=== PATIENT | male | born 1985 | race Caucasian/White ===

== ENCOUNTER 2022-06-17 10:17 | Emergency (ER) | payer OTHER, BC, SELFPAY ==
[2022-06-17 10:26] VITALS: BP 144/78; PULSE 78; RESP 18; TEMP 36.3; O2SAT 98; BMI 29.2
--- NOTE | 2022-06-17 11:00 | ED_ITS ---
HPI - Extremity Injury (Upper) General Chief Complaint: Extremity Pain/Injury, Upper Stated Complaint: Pain behind left shoulderblade Time Seen by Provider: 06/17/22 10:32 History of Present Illness HPI narrative: Started to feel some discomfort in the area of his left shoulder yesterday morning. 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 Was caring tripod with Mom today equipment through the [place] yesterday primarily with his left hand/arm. Over the course of the day in through the night things have gotten increasingly bad. Pain is progressed to his anterior chest as well. Does not hurt so much to move the neck but any manipulation of the shoulder area it does cause pain. I note him to be high riding his left shoulder. Tried 7 Tylenol over the course of the day yesterday without making a difference. Woke up in the middle night also with a little numbness in his left hand. No personal or family history of cardiovascular disease. Has seen a chiropractor regularly over the years. Related Data Home Medications Medication Instructions Recorded Confirmed No Known Home Medications 06/17/22 06/17/22 Allergies Allergy/AdvReac Type Severity Reaction Status Date / Time Sulfa (Sulfonamide Allergy Verified 06/17/22 10:29 Antibiotics) Review of Systems Status of ROS: Reports: 10 or more systems reviewed and unremarkable except as noted in History and below PFSH [facility] Social History Smoking Status: Never smoker Do you use any of these nicotine containing products: None How often do you have a drink containing alcohol: never AUDIT-C Alcohol total score: 0 Non-prescribed substance use: denies use Exam Narrative: Exam Narrative: Pleasant. Clearly uncomfortable. Seated on the bed with left shoulder rather elevated. Regularly placing right hand on left shoulder area and massaging. Neck is supple and not particularly tender. Is breathing easily. Lungs are clear. Cardiovascular with regular rate and rhythm no murmur rub or gallop. Intact sensation and strength distally in the upper extremities. Quite sore to palpation about the trapezius musculature on the left and into the upper rhomboids. Resists rotational movement of the shoulder but when isolated with smaller movements in the joint does not seem to be involved. Well-perfused peripherally and good radial pulses. I do not see any discrete swelling or erythema in the area of the shoulder. Is also sore to palpation over the anterior upper left chest. No rashes. Const: Vital Signs, click to edit/add: Vital Signs - 24 hr 06/17/22 10:26 Temperature 97.4 F L Pulse Rate [Right Pulse Oximeter] 78 Respiratory Rate 18 Blood Pressure [Ri ght Upper Arm] 144/78 H Pulse Oximetry 98 Oxygen Delivery Me thod Room Air Documenting provider has reviewed patient's vital signs: yes Course Vital Signs Vital signs: Initial Vital Signs Temperature 97.4 F L 06/17/22 10:26 Temperature Source Temporal Artery Scan 06/17/22 10:26 Pulse Rate 78 06/17/22 10:26 Respiratory Rate 18 06/17/22 10:26 Blood Pressure 144/78 H 06/17/22 10:26 Blood Pressure Mean 100 06/17/22 10:26 Blood Pressure Position Sitting 06/17/22 10:26 Pulse Oximetry 98 06/17/22 10:26 Oxygen Delivery Method 06/17/22 10:26 Vital Signs Temperature 97.4 F L 06/17/22 10:26 Pulse Rate 78 06/17/22 10:26 Respiratory Rate 18 06/17/22 10:26 Blood Pressure 144/78 H 06/17/22 10:26 Pulse Oximetry 98 06/17/22 10:26 Oxygen Delivery Method 06/17/22 10:26 Temperature 97.4 F L 06/17/22 10:26 Pulse Rate 78 06/17/22 10:26 Respiratory Rate 18 06/17/22 10:26 Blood Pressure 144/78 H 06/17/22 10:26 Pulse Oximetry 98 06/17/22 10:26 Oxygen Delivery Method 06/17/22 10:26 MDM - Extremity Injury (Upper) MDM Narrative Medical decision making narrative: I am not absolutely convinced that there is a discogenic issue to explain the radiculopathy. I think this is related to muscle spasm may be bursal irritation in etiology in the area of the scapula. And this has recruited muscle groups. I did offer prednisone as well for treatment. Mr. Jimenez will go along with whatever recommendations are made. Without specific injury and chronicity, I am not sure that imaging here today would be useful. Discharge Plan Discharge Clinical Impression: Muscle spasm, Rhomboid myalgia Patient Disposition: Home w/ Parent or Adult Condition: Stable Additional Instructions: Hydrate... With water. See handout for upper back exercises that I think would benefit you going forward to do daily. Wear the arm sling over the next few days to help this area relax. Since you have a relationship with a chiropractor I would check in with them. Can take up to 800 mg of ibuprofen per dose or alternatively up to 500 mg naproxen 2 times daily. Either can be combined with acetaminophen. Remember that each tablet of Petros contains 325 mg of acetaminophen Petros Flexeril and prednisone from [facility]. Prescriptions: No Action No Known Home Medications Stand Alone Forms: [employer] Info Instructions
--- OUTSIDE RECORDS SUMMARY | 2022-06-17 11:08 | XMS_ITS | Clinical Summary ---
:1985 Author Organization [email or web address] [place] [address] Care Team Providers Name Role Phone Pcp, No Primary Care Provider Unavailable Allergies Active Allergy Reactions Severity Noted Date Comments Sulfa (Sulfonamide Antibiotics) Rash 7 Medications No known medications Active Problems Problem Noted Date Tinea cruris 05/01/2013 Encounters Date Type Specialty Care Team Description 06/17/2022 Travel 06/17/2022 Nurse Triage Pcp, No Chest Pain from Last 3 Months Immunizations Name Administration Dates Next Due AMB Influenza, IIV3 (Age >=3 years)(Flu 05/22/2008 Clinic Only) Hepatitis A (Adult) 05/09/2005 Hepatitis B (Adult) 10/08/2002, 04/30/2002, 03/02/2000 Td (Age >=7 Years) 03/02/2000 Social History Tobacco Use Types Packs/Day Years Used Date Never Smoker Smokeless Tobacco: Never Used Tobacco Cessation: Counseling Given: Yes Alcohol Use Standard Drinks/Week Comments No 0 (1 standard drink = 0.6 oz pure alcoho l) Sex Assigned at Date Recorded Not on file COVID-19 Exposure Response Date Recorded In the last 10 days, have you been in contact with No / Unsu re 06/17/2022 9:31 AM RN FIRST ASSIST someone who was confirmed or suspected to have Coronavirus/COVID-19? Obstetrics History Last Filed Vital Signs Vital Sign Reading Time Taken Comments Blood Pressure 129/81 09/10/2021 11:23 AM RN FIRST ASSIST Pulse 77 09/10/2021 11:23 AM RN FIRST ASSIST Temperature 37.1 ??C (98.7 ??F) 09/10/2021 11:23 AM RN FIRST ASSIST Respiratory Rate 12 09/25/2012 3:43 PM RN FIRST ASSIST Oxygen Saturation 98% 09/10/2021 11:23 AM RN FIRST ASSIST Inhaled Oxygen Concentration - - Weight 99.8 kg (220 lb) 09/10/2021 11:23 AM RN FIRST ASSIST Height 182.9 cm (6') 10/14/2016 2:04 PM CDT Body Mass Index 29.84 10/14/2016 2:04 PM CDT Plan of Treatment Health Maintenance Due Date Last Done Comments Tdap 1998 HIV for age 15-65 2002 Hepatitis C screening for age 18-79 2005 Tetanus booster 03/02/2010 03/02/2000 BMI (ht and wt on same day) for age 18+ 10/14/2017 10/15/19 17, 09/26/2016 Depression screening for age 12+ 10/14/2017 10/14/2016 COVID-19 vaccine series (3 - Booster for 02/02/2021 021, 11/17/2020 Pfizer series) Influenza for age 9-49 03/31/2022 05/22/2008 Results Not on filefrom Last 3 Months Insurance Payer Benefit Plan / Subscriber ID Effective Dates Phone Addre ss Type Group MEDICA MEDICA ELECT [id number] 2021-Present [address] [id number] [place] [address] Care Teams Lens Blocker Relationship Specialty Start Date End Date Pcp, No PCP - General 05/01/13 .
== END 2022-06-17 11:22 | disposition home or self-care (01) ==
LOC: ED 11:05
PROVIDERS: Emergency Provider Family Medicine
DX: M25.512 Pain in left shoulder (principal); M62.830 Muscle spasm of back
CPT/HCPCS: 99283

== ENCOUNTER 2025-03-30 21:27 | Emergency (ER) | payer BC, SELFPAY ==
--- OUTSIDE RECORDS SUMMARY | 2024-12-20 23:30 | XMS_ITS | Continuity of Care Document ---
Author Organization [facility] Address [address] [address] [place] [address] Phone Care Team Providers Care Welt Cutter Name Role Phone No Information Unavailable Unavailable Advance Directives Directive Yes / No Effective Date File Name No Information Encounters Encounter Description Practice Location Reason(s) For Visit Diagnoses Date Provider Providers Copied on Encounter [facility], [address] [address], [place], [place], [id number], [place] tel:[phone] No Information No Information Family History Family Member Type Diagnosis Age At Onset No Information Payers Payer name Insurance type Covered democrat ID Authoriza tion(s) No Information Social History Type Description Quantity Date Captured Comments Sex Male Smoking Status No Information Chief Complaint And Reason For Visit No Information Reason For Referral Reason For Referral No Information History Of Present Illness Encounter Date Complaint History Of Prese nt Illness No Information Functional Status Date Functional Assessmen t No Information Instructions Date Instruction Additional Infor mation No Information Assessments Type Assessment Date No Information Patient Care Teams Name Effective Dates (start - stop) Status Members No Information
--- OUTSIDE RECORDS SUMMARY | 2024-12-20 23:30 | XMS_ITS | Continuity of Care Document ---
Author Organization [facility] Address [address] [address] [place] [address] Phone Care Team Providers Care Supervisor Parking Lot Name Role Phone No Information Unavailable Unavailable Advance Directives Directive Yes / No Effective Date File Name No Information Encounters Encounter Description Practice Location Reason(s) For Visit Diagnoses Date Provider Providers Copied on Encounter [facility], [address] [address], [place], [place], [id number], [place] tel:[phone] No Information No Information Family History Family Member Type Diagnosis Age At Onset No Information Payers Payer name Insurance type Covered republican ID Authoriza tion(s) No Information Social History [...]
--- OUTSIDE RECORDS SUMMARY | 2025-03-30 21:28 | XMS_ITS | Clinical Summary ---
Author Organization [facility] Address [address] [place] [id number] Care Team Providers Care Wire Turning Machine Operator Name Role Phone Ana Paula Grijalva Primary Care Provider [phone] Allergies Active Allergy Reactions Criticality Noted Date Comments Omeprazole Cough,Throat Swelling/Closing High 12/31/2024 Sulfa (Sulfonamide Antibiotics) Rash 10/19/2006 Medications Blood Pressure Monitor KitIndications:El evated BP without diagnosis of hypertension Frequency of testing: once daily 1 Each 4 Active albuterol HFA 90 mcg/actuation inhalerIndication s:Difficulty breathing,Wheezin g Inhale 2 Puffs by mouth every 4 hours if needed (prior to exercise). 8.5 g 5 Active famotidine (PEPCID) 40 mg tabletIndications :Gastroesophageal reflux disease, unspecified whether esophagitis present,Throat pain Take 1 Tablet (40 mg) by mouth two times daily. 60 Tablet 5 Active Active Problems Problem Noted Date Diagnosed Date Tinea cruris 05/01/2013 Encounters Date Type Department Care Team Description 03/19/2025 Telephone [facility] [place] [address] [place] [address] Ronn Carr MD 03/18/2025 Telephone [facility] [place] [address] [place] [address] Ronn Carr MD Appointment Reminder (EGD on 03/24/2025 at [facility]) 03/13/2025 7:30 AM CDT Office Visit [facility] [place] [address] [place] [address] Ronn Carr MD Consult (GERD, constant throat clearing, taking 'stomach soothe' as well as allergy and mucus relief) 03/13/2025 Telephone [facility] [place] [address] [place] [address] Ronn Carr MD Screening 03/13/2025 Travel 12/31/2024 3:10 PM CDT Office Visit [facility] [address] [place] [address] Ana Paula Grijalva PA Gi Problem (Acid reflux is getting better in chest but is still feeling lump in throat /Tongue discoloration ) 12/31/2024 Travel from Last 3 Months Immunizations Immunization Administration Dates Next Due AMB Influenza, IIV3 (Age >=3 years)(Flu Clinic Only) 05/22/2008 Hepatitis A (Adult) 05/09/2005 Hepatitis B (Adult) 10/08/2002,04/30/2002,1999 MMR 03/02/2000,11/17/1988 Meningococcal Vaccine (Menomune) 03/13/2006 Td (Age >=7 Years) 03/02/2000 Yellow Fever 05/09/2005 Family History Medical History Relation Name Comments Asthma Mother Asthma Sister Relation Name Status Comments Mother Sister Social History Tobacco Use Types Packs/Day Years Used Date Smoking Tobacco: Never Smokeless Tobacco: Never Tobacco Cessation:Counseling Given: Yes Alcohol Use Standard Drinks/Week Comments Yes 0 (1 standard drink = 0.6 oz pur e alcohol) rare PHQ-2 Answer Date Recorded PHQ-2 TOTAL SCORE 0 12/31/2024 Social Connections Answer Date Recorded Do you often feel lonely or isolated from those around you? 0 11/21/2024 Financial Resource Strain Answer Date R ecorded Difficulty of Paying Living Expenses 3 11/21/2024 Difficulty of Paying Living Expenses Not on file 11/21/2024 Food Insecurity Answer Date Recorded Do you worry your food will run out before you are able to buy more? 1 11/21/2024 Transportation Needs Answer Date Record ed Does lack of transportation keep you from medica l appointments? 1 11/21/2024 Does lack of transportation keep you from work, meetings or getting things that you need? 1 11/21/2024 Housing Stability Answer Date Recorded What is your housing situation today? 1 11/21/2024 Utilities Answer Date Recorded Do you have trouble paying f or utilities (for example, heat, electricity, water, phone)? 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 Gender Identity Not on file Sexual Orientation Not on file Obstetrics History Last Filed Vital Signs Vital Sign Reading Time Taken Comments Blood Pressure 121/73 03/13/2025 7:37 AM CDT Pulse 87 03/13/2025 7:37 AM CDT Temperature 36.4 C (97.5 F) 11/21/2024 9:23 AM CDT Respiratory Rate 16 12/31/2024 3:37 PM CDT Oxygen Saturation 97% 03/13/2025 7:37 AM CDT Inhaled Oxygen Concentration - - Weight 97.3 kg (214 lb 9.6 oz) 03/13/2025 7:37 A M CDT Height 180.3 cm (5' 11) 12/31/2024 3:37 PM CDT Body Mass Index 29.93 12/31/2024 3:37 PM CDT Plan of Treatment Scheduled Procedures Name Priority Associated Diagnoses Date/Ti me SURGICAL PROCEDURE (TYPE PROCEDURE DESCRIPTION BELOW) Gastroesophageal reflux disease with esophagitis, unspecified whether hemorrhage Health Maintenance Due Date Last Done Comments Tetanus booster 03/02/2010 03/02/2000 COVID-19 vaccine series ( season) 2024 12/08/2020, 11/17/2020 Influenza Vaccine (#1) 2025 05/22/2008 BMI (ht and wt on same day) for age 18+ 12/31/2025 12/31/2024, 11/21/2024, 08/21/2023, Additional history exists Depression screening for age 12+ 12/31/2025 12/31/2024, 08/21/2023, 10/14/2016 Lipids for age 35-44 12/31/2029 12/31/2024 RSV vaccine for adults or (1 - 1-dose 75+ series) 2062 Hepatitis B series for 19+ Completed 10/08, 04/30/2002, 03/02/2000 HIV for age 15-65 Completed 12/31/2024 Hepatitis C screening for age 18-79 Completed 12/31/2024 Pneumococcal series for age 6-49 Aged Out No longer eligible based on patient's age to complete this topic Procedures Procedure Name Priority Date/Time Associated Diagnosis Comments ANTI HCV Routine 12/31/2024 4:03 PM CDT Need for hepatitis C screening test LIPID PANEL W REFLEX MEASURED LDL Routine 12/31/2024 4:03 PM CDT Screening for lipid disorders ANTI HIV 1/2 Routine 12/31/2024 4:03 PM CDT Screening for HIV (human immunodeficiency virus) T3,TOTAL Routine 12/31/2024 4:03 PM CDT Throat discomfort T4,FREE Routine 12/31/2024 4:03 PM CDT Throat discomfort TSH Routine 12/31/2024 4:03 PM CDT Throat discomfort from Last 3 Months Results * (ABNORMAL) LIPID PANEL W REFLEX MEASURED LDL [ZEP2336] (12/31/2024 4:03 PM CDT) Pathologist [facility] CHOLESTEROL, TOTAL 270(H) <200 mg/dL 01/01/2025 8:35 AM CDT [facility] TRIGLYCERIDES 366(H) <150 mg/dL 01/01/2025 8:35 AM CDT [facility] Comment: If a non-fasting specimen was collected, consider repeat triglyceride testing on a fasting specimen if clinically indicated. Renee et al. J. of Clin. Lipidol. 2015;9:129-169. HDL CHOLESTEROL 42 > OR = 40 mg/dL 01/01/2025 8:35 AM CDT [facility] NON HDL CHOLESTEROL 228(H) <130 mg/dL (calc) 01/01/2025 8:35 AM CDT [facility] Comment: Non-HDL level > or = 220 is very high and may indicate genetic familial hypercholesterolemia (FH). Clinical assessment and measurement of blood lipid levels should be considered for all first-degree relatives of patients with an FH diagnosis. For patients with diabetes plus 1 major ASCVD risk factor, treating to a non-HDL-C goal of <100 mg/dL (LDL-C of <70 mg/dL) is considered a therapeutic option. CHOL/HDLC RATIO 6.4(H) <5.0 (calc) 01/01/2025 8:35 AM CDT [facility] LDL-CHOLESTEROL 166(H) mg/dL (calc) 01/01/2025 8:35 AM CDT [facility] Comment: Reference range: <100 Desirable range <100 mg/dL for primary prevention; <70 mg/dL for patients with CHD or diabetic patients with > or = 2 CHD risk factors. LDL-C is now calculated using the Zara calculation, which is a validated novel method providing better accuracy than the Friedewald equation in the estimation of LDL-C. Ronn HADDAD et al. OBED. 2013;310(19): 5709-7866 (http://education.Zigfu/faq/XOH097) Blood BLOOD SPECIMEN / Unknown Non-Lab Venipuncture / Unknown 12/31/2024 4:03 PM CDT 12/31/2024 4:03 PM CDT Ana Paula ELIZABETH CHEMISTRY Final Res ult Performing Organization Address City/[facility]/ZIP Co de Phone Number [facility] [address] [address], [place] [phone] * TSH (12/31/2024 4:03 PM CDT) TSH 1.80 0.40 - 4.50 mIU/L 01/01/2025 9:59 AM CDT [facility] Blood BLOOD SPECIMEN / Unknown Non-Lab Venipuncture / Unknown 12/31/2024 4:03 PM CDT 12/31/2024 4:03 PM CDT Ana Paula ELIZABETH CHEMISTRY Final Res ult [facility] [address] [address], [place] [phone] * ANTI HCV (12/31/2024 4:03 PM CDT) HEPATITIS C ANTIBODY NON-REACT JUANY NON-REACT JUANY 01/01/2025 11:37 AM CDT [facility] Comment: HCV antibody was non-reactive. There is no laboratory evidence of HCV infection. In most cases, no further action is required. However, if recent HCV exposure is suspected, a test for HCV RNA (test code 03322) is suggested. For additional information please refer to http://Jive Software.Shnergle/faq/CVX84c1 (This link is being provided for informational/ educational purposes only.) Blood BLOOD SPECIMEN / Unknown Non-Lab Venipuncture / Unknown 12/31/2024 4:03 PM CDT 12/31/2024 4:03 PM CDT Ana Paula ELIZABETH SEND OUTS Final Res ult [facility] [address] [place] [address], [place] [phone] * ANTI HIV 1/2 [30264.0] (12/31/2024 4:03 PM CDT) HIV AG/AB, 4TH GEN NON-REACT JUANY NON-REACT JUANY 01/01/2025 2:16 PM CDT [facility] Comment: HIV-1 antigen and HIV-1/HIV-2 antibodies were not detected. There is no laboratory evidence of HIV infection. PLEASE NOTE: This information has been disclosed to you from records whose confidentiality may be protected by state law. If your state requires such protection, then the state law prohibits you from making any further disclosure of the information without the specific written consent of the person to whom it pertains, or as otherwise permitted by law. A general authorization for the release of medical or other information is NOT sufficient for this purpose. For additional information please refer to http://Jive Software.Shnergle/faq/EEX973 (This link is being provided for informational/ educational purposes only.) The performance of this assay has not been clinically validated in patients less than 2 years old. Blood BLOOD SPECIMEN / Unknown Non-Lab Venipuncture / Unknown 12/31/2024 4:03 PM CDT 12/31/2024 4:03 PM CDT Ana Paula ELIZABETH SEND OUTS Final Res ult Performing Organization Address City/[facility]/ZIP Co de Phone Number [facility] [address] [address], [place] [phone] * T3,TOTAL (12/31/2024 4:03 PM CDT) T3, TOTAL 90 76 - 181 ng/dL 01/01/2025 9:59 AM CDT [facility] Blood BLOOD SPECIMEN / Unknown Non-Lab Venipuncture / Unknown 12/31/2024 4:03 PM CDT 12/31/2024 4:03 PM CDT Ana Paula ELIZABETH CHEMISTRY Final Res ult Performing Organization Address [facility] Co de Phone Number [facility] [address] [address], [place] [phone] * T4,FREE (12/31/2024 4:03 PM CDT) T4, FREE 1.2 0.8 - 1.8 ng/dL 01/01/2025 9:59 AM CDT [facility] Blood BLOOD SPECIMEN / Unknown Non-Lab Venipuncture / Unknown 12/31/2024 4:03 PM CDT 12/31/2024 4:03 PM CDT Ana Paula ELIZABETH CHEMISTRY Final Res ult Performing Organization Address City/[facility]/ZIP Co de Phone Number [facility] [address] [place] [address], [place] [phone] from Last 3 Months Insurance [facility] Care Teams Wire Turning Machine Operator Relationship Specialty Start [place] [address] [place] [address] PCP - General Physician Clinical Biostatistician 12/12/24
[2025-03-30 21:38] VITALS: BP 148/65; PULSE 59; RESP 15; TEMP 36.4; O2SAT 99; BMI 29.3
--- NOTE | 2025-03-30 21:52 | CRLHL7_ITS ---
For Patients: As a result of the Century Cures Act, medical imaging exams and procedure reports are released immediately into your electronic medical record. You may view this report before your referring provider. If you have questions, please contact your health care provider. INDICATION: Epigastric and bilateral flank pain. TECHNIQUE: CT abdomen and pelvis acquired with 100 cc Omnipaque 350 IV contrast. COMPARISON: None. FINDINGS: Lower chest: Unremarkable. Liver: Unremarkable. Normal in size and attenuation. No suspicious masses. Gallbladder and bile ducts: Unremarkable. No stones or inflammation. No biliary dilatation. Pancreas: Unremarkable. No mass or inflammation. Spleen: Unremarkable. Normal in size. No masses. Adrenal glands: Unremarkable. No nodules. Kidneys: Unremarkable. No suspicious masses, stones, or hydronephrosis. GI tract: Mild to moderate proximal colonic stool burden. Normal in caliber. No sign of mass or inflammation. Normal appendix. Vasculature: Abdominal aorta is normal in caliber. Mesenteric arteries are patent. Lymph nodes: No lymphadenopathy. Peritoneum/Abdominal Wall: Tiny fat containing umbilical hernia. No sign of mass or infiltration. No free air or significant free fluid. Pelvis: Unremarkable. Bones: Unremarkable for age. IMPRESSION: No acute intra-abdominal/pelvic abnormality, including obstructive uropathy. Mild to moderate proximal colonic stool burden. Please note that all CT scans at this facility use dose modulation, iterative reconstruction, and/or weight-based dosing when appropriate to reduce radiation dose to as low as reasonably achievable. Dictated by Joshua Rodriguez MD @ 03/30/2025 10:43:57 PM (Electronically Signed)
[2025-03-30 21:58] LABS: Appearance Urine Clear (Clear)
--- NOTE | 2025-03-30 22:05 | ED.ABDPAIN ---
HPI - Abdominal Pain General Date Seen: 03/30/25 Chief Complaint: Abdominal Pain Stated Complaint: stomach pain Time Seen by Provider: 03/30/25 21:27 Source: patient Mode of arrival: ambulatory Limitations: no limitations History of Present Illness HPI narrative: Patient is a 39-year-old male presenting to the emergency department for abdominal pain. He states suddenly about 30 minutes prior to arrival he started to have bilateral low flank pain. He then stood up and pain moved to his lower abdomen and now to his epigastric region. States the pain is sharp in nature and has not changed at all. Has never had pain like this before. Had some nausea earlier that has since resolved. Has not had any vomiting. Not aware of any abnormal foods he ate. Denies chest pain or shortness of breath. Denies headache, lightheadedness, dizziness, weakness, numbness, diarrhea, constipation, dysuria. Is has not tried anything yet for the pain. No previous history of abdominal surgeries. No history of kidney stones. No other concerns noted Related Data Home Medications ?Medication ?Instructions ?Recorded ?Confirmed albuterol sulfate 90 mcg/actuation 2 puff inhalation Q4-6H PRN 10/29/24 03/30/25 aerosol inhaler (Ventolin HFA) famotidine 40 mg tablet 40 mg PO BID 03/30/25 03/30/25 Allergies Allergy/AdvReac Type Severity Reaction Status Date / Time Sulfa (Sulfonamide Allergy Verified 03/30/25 22:39 Antibiotics) omeprazole AdvReac Verified 03/30/25 22:39 Review of Systems Status of ROS Reports: 10 or more systems reviewed and unremarkable except as noted in History and below PFSH PFSH Social History Smoking Status: Never smoker Do you use any of these nicotine containing products: None Second hand tobacco smoke exposure: No How often do you have a drink containing alcohol: never AUDIT-C Alcohol total score: 0 Non-prescribed substance use: denies use service: No Exam Narrative: Exam Narrative: Const: Well-nourished, Well-developed, in mild distress Eyes: PERRL, no conjunctival injection, and symmetrical lids HENT: Atraumatic external nose and ears. Moist mucous membranes. Neck: Symmetric, trachea midline, No thyromegaly. CVS: RRR, No murmurs or gallops. Peripheral pulses 2+ and equal in all extremities RESP: Unlabored respiratory effort. Clear to auscultation bilaterally. GI: Diffuse epigastric tenderness worse in the epigastric region. Nondistended, No rebound or guarding. No CVA tenderness MSK:Extremities w/o deformity, Normal Active ROM Skin: Warm, Dry. No rashes or lesions. Neuro: Normal Muscle tone, No focal neurological deficits. Psych: Awake, Alert, & Oriented x3. Appropriate mood and affect. Const: Vital Signs, click to edit/add: Vital Signs - 24 hr 03/30/25 21:38 03/30/25 23:09 Temperature 97.6 F Pulse Rate [Pulse Oximeter] 59 L 52 L Respiratory Rate 15 16 Blood Pressure [Ri ght Upper Arm] 148/65 H 126/76 Pulse Oximetry 99 93 Oxygen Delivery Me thod Room Air Room Air Course Vital Signs Vital signs: Initial Vital Signs Temperature 97.6 F 03/30/25 21:38 Temperature Source Temporal Artery Scan 03/30/25 21:38 Pulse Rate 59 L 03/30/25 21:38 Respiratory Rate 15 03/30/25 21:38 Blood Pressure 148/65 H 03/30/25 21:38 Blood Pressure Mean 92 03/30/25 21:38 Blood Pressure Position Sitting 03/30/25 21:38 Pulse Oximetry 99 03/30/25 21:38 Oxygen Delivery Method Room Air 03/30/25 21:38 Vital Signs Temperature 97.6 F 03/30/25 21:38 Pulse Rate 59 L 03/30/25 21:38 Respiratory Rate 15 03/30/25 21:38 Blood Pressure 148/65 H 03/30/25 21:38 Pulse Oximetry 99 03/30/25 21:38 Oxygen Delivery Method Room Air 03/30/25 21:38 Temperature 97.6 F 03/30/25 21:38 Pulse Rate 52 L 03/30/25 23:09 Respiratory Rate 16 03/30/25 23:09 Blood Pressure 126/76 03/30/25 23:09 Pulse Oximetry 93 03/30/25 23:09 Oxygen Delivery Method Room Air 03/30/25 23:09 Medications Administered Medications: Generic Name Dose Route Start Last Admin Trade Name Freq PRN Reason Stop Dose Admin Lidocaine/Aluminum/Magnesium/Simeth 30 ml 03/30/25 23:31 03/30/25 23:37 Gi Cocktail (Visc Lido/Antacid) 30 Ml PO 03/30/25 23:32 30 ml ONCE ONE Administration Morphine Sulfate 4 mg 03/30/25 22:45 03/30/25 23:04 Morphine 4 Mg/Ml Inj IVP 03/30/25 22:46 4 mg ONCE ONE Administration Ondansetron HCl 4 mg 03/30/25 22:45 03/30/25 23:03 Ondansetron 2 Mg/Ml Inj IVP 03/30/25 22:46 4 mg ONCE ONE Administration Discontinued Medications Generic Name Dose Route Start Last Admin Trade Name Traeq PRN Reason Stop Dose Admin Morphine Sulfate 4 mg 03/30/25 21:52 03/30/25 22:16 Morphine 4 Mg/Ml Inj IVP 03/30/25 21:53 4 mg ONCE ONE Administration MDM - Abdominal Pain MDM Narrative Medical decision making narrative: Patient is a 39-year-old male presenting to the emergency department for abdominal pain. Freya was having some flank pain but that seems is since resolved. He is of a low risk for a AAA rupture and also his vital signs appear stable. Continues to have the abdominal pain so will do CT scan of the abdomen pelvis for better evaluation to look for signs of pancreatitis, gastroenteritis, gallbladder liver disease. Seems less likely be diverticulitis or appendicitis due to location of the pain. SBO seems unlikely with no previous history of abdominal surgeries. On given some morphine for pain. CBC, CMP, urinalysis, viral swab, lipase all ordered. Lab work showed a very mildly elevated AST and elevated total bilirubin. Direct bilirubin ordered her with the lab show no acute concerning abnormalities. Was still having pain after morphine some more morphine was ordered along with some Zofran for any underlying nausea. CT scan showed no acute intra-abdominal abnormalities. There is some mild to moderate proximal colonic stool burden. GI cocktail was also ordered. He is having some relief with a GI cocktail. Seems like his symptoms are most likely related to gastroenteritis. He is safe for discharge and they are agreeable to this plan Lab Data Labs: Lab Results 03/30/25 03/30/25 03/30/25 Range/Units 21:52 21:55 22:00 WBC 8.02 (4.50-11.00) K/uL RBC 4.81 (4.30-5.90) m/uL Hgb 14.8 (13.5-17.5) gm/dL Hct 41.8 (37.0-53.0) % MCV 87 (80-100) fL MCH 31 (26-34) pg MCHC 35 (32-36) gm/dL RDW Coeff of Valentino 11.9 (11.5-15.5) % Plt Count 218 (140-440) K/uL Neut % (Auto) 72.2 H (42.0-72.0) % Lymph % (Auto) 20.9 (20-44) % [place] % (Auto) 5.2 (0.0-11.0) % Eos % (Auto) 1.1 (0.0-7.0) % Baso % (Auto) 0.5 (0.0-3.0) % Neut # (Auto) 5.80 (1.7-7.0) K/uL Lymph # (Auto) 1.68 (0.90-2.90) K/uL [place] # (Auto) 0.40 (0.00-0.90) K/UL Eos # (Auto) 0.09 (0.00-0.50) K/uL Baso # (Auto) 0.04 (0.00-0.30) K/uL Abs Immat Gran (auto) 0.01 (0.00-0.30) K/uL Imm/Tot Granulo (auto) 0.1 % Sodium 137 (135-149) mmol/L Potassium 3.8 (3.6-5.1) mmol/L Chloride 101 (96-114) mmol/L Carbon Dioxide 26 (20-32) mmol/L Anion Gap 10 (7-15) mEq/L BUN 17 (5-24) mg/dL Creatinine 0.9 (0.5-1.5) mg/dL Estimated Creat Clear 119.69 Estimated GFR 113 ml/min Glucose 107 (60-115) mg/dL Calcium 10.1 (8.4-10.6) mg/dL Total Bilirubin 2.1 H (0.1-1.5) mg/dL Direct Bilirubin 0.3 (0.0-0.5) mg/dL AST 36 H (12-35) U/L ALT 31 (4-50) U/L Alkaline Phosphatase 89 (40-150) U/L Total Protein 8.5 H (6.0-8.3) g/dL Albumin 4.9 (3.3-5.0) g/dL Lipase 107 (23-300) U/L Urine Color Yellow (Yellow) Urine Appearance Clear (Clear) Urine pH 7.0 (5.0-8.5) Ur Specific [place] 1.015 (1.000-1.030) Urine Protein Negative (Negative) Urine Glucose (UA) Negative (Negative) Urine Ketones Negative (Negative) Urine Blood Negative (Negative) Urine Nitrite Negative (Negative) Urine Bilirubin Negative (Negative) Urine Urobilinogen 0.2 (0.2-1.0) Ur Leukocyte Esterase Negative (Negative) Urine RBC 0-2 (0-2) Urine WBC 0-2 (0-5) Ur Squamous Epith Cells Few (None-Few) Amorphous Sediment Many A (None) Urine Bacteria Few A (None) SARS-CoV-2 (PCR) Negative SARS-CoV-2 (Negative) Influenza Type A (PCR) Negative PCR FLU A (Negative) Influenza Type B (PCR) Negative PCR FLU B (Negative) RSV (PCR) Negative PCR RSV (Negative) Imaging Data CT scan abdomen and pelvis: Attestation: I have reviewed the pertinent imaging results. Radiologist's impression: No acute intra-abdominal/pelvic abnormality, including obstructive uropathy. Mild to moderate proximal colonic stool burden. Please note that all CT scans at this facility use dose modulation, iterative reconstruction, and/or weight-based dosing when appropriate to reduce radiation dose to as low as reasonably achievable. Dictated by Joshua Rodriguez MD @ 03/30/2025 10:43:57 PM Discharge Plan Discharge Clinical Impression: Abdominal pain Qualifiers: Abdominal location: epigastric Qualified Code(s): R10.13 - Epigastric pain Patient Disposition: Home, Self-Care Condition: Improved Instructions: Gastroenteritis (ED) Additional Instructions: You do have a mild to moderate amount of stool in your colon. This seems unlikely to be causing your pain but if you began to have issues with constipation I recommend taking stool softeners. I believe your symptoms are most likely related to a gastroenteritis which is typically a viral infection of your stomach lining. It will resolve on its own. Recommend taking Tums and other antacids. Prescriptions: No Action albuterol sulfate [Ventolin HFA] 90 mcg/actuation HFA aerosol inhaler 2 puff inhalation Q4-6H PRN famotidine 40 mg tablet 40 mg PO BID Follow Up/Referrals: Provider,Not a Local [Primary Care Provider, Family Practice] Stand Alone Forms: [employer] Info Instructions
[2025-03-30 22:12] LABS: Hematocrit 41.8 % (37.0-53.0); Hemoglobin* 14.8 gm/dL (13.5-17.5); Immature Granulocytes Abs Auto 0.01 K/uL (0.00-0.30); Immature Granulocytes Pct Auto 0.1 %; Lymphocytes Absolute Auto 1.68 K/uL (0.90-2.90); Mean Corpuscular HGB Conc 35 gm/dL (32-36); Mean Corpuscular Hemoglobin 31 pg (26-34); Mean Corpuscular Volume 87 fL (80-100); RDW Coefficient of Variation % 11.9 % (11.5-15.5); Red Blood Count 4.81 m/uL (4.30-5.90); White Blood Count* 8.02 K/uL (4.50-11.00)
[2025-03-30] MEDS: MORPHINE 4 MG/ML INJ IVP ×2 (22:16→23:04)
[2025-03-30 22:17] LABS: Slide Review Reflex No
[2025-03-30 22:32] LABS: Albumin* 4.9 g/dL (3.3-5.0); Chloride* 101 mmol/L (96-114); Potassium* 3.8 mmol/L (3.6-5.1); Sodium* 137 mmol/L (135-149)
[2025-03-30 22:34] LABS: Alanine Aminotransferase* 31 U/L (4-50); Anion Gap 10 mEq/L (7-15); Aspartate Amino Transferase* 36 U/L (12-35); Blood Urea Nitrogen* 17 mg/dL (5-24); Carbon Dioxide* 26 mmol/L (20-32); Creatinine* 0.9 mg/dL (0.5-1.5); Est. Creatinine Clearance* 119.69; Estimated Glomerular Filt Rate 113 ml/min
[2025-03-30 22:35] LABS: Alkaline Phosphatase* 89 U/L (40-150); Bilirubin Total* 2.1 mg/dL (0.1-1.5); Calcium* 10.1 mg/dL (8.4-10.6); Glucose* 107 mg/dL (60-115); Total Protein* 8.5 g/dL (6.0-8.3)
[2025-03-30 22:49] LABS: PCR FLU A Negative PCR FLU A (Negative); PCR FLU B Negative PCR FLU B (Negative); PCR RSV Negative PCR RSV (Negative); SARS PCR* Negative SARS-CoV-2 (Negative)
[2025-03-30 22:59] LABS: Bilirubin Direct* 0.3 mg/dL (0.0-0.5)
[2025-03-30] MEDS: ONDANSETRON 2 MG/ML inj 4 MG IVP (23:03)
[2025-03-30 23:09] VITALS: BP 126/76; PULSE 52; RESP 16; O2SAT 93
[2025-03-30] MEDS: GI COCKTAIL (VISC LIDO/ANTACID) 30 ML PO (23:37)
== END 2025-03-31 00:10 | disposition home or self-care (01) ==
PROVIDERS: Emergency Provider Student in an Organized Health Care Education/Training Program
DX: R10.13 Epigastric pain (principal)
CPT/HCPCS: 36415; 74177; 80053; 81001; 82248; 83690; 85025; 87086; 87631; 96374; 96375; 99284; 99285; A9270; J2270; J2405; Q9967